=== PATIENT | female | born 1990 | race Caucasian/White ===

== ENCOUNTER 2016-10-07 07:16 | Emergency (ER) | payer BC ==
[~2016-10-07] VITALS: Ht 175.3 cm; Wt 72.2 kg
[2016-10-07] MEDS ORDERED: MORPHINE 4 MG/ML 1ML SYRINGE IV ONE (07:45)
[2016-10-07] MEDS ORDERED: NS 1,000 ML IV SCH (07:45)
[2016-10-07] MEDS ORDERED: ONDANSETRON 4MG/2ML VIAL (J2405) IV ONE (07:45)
[2016-10-07 08:06] LABS: BASO % 0.2 % (0.0-1.0); EOS # 0.1 K/mm3 (0.0-0.50); EOS % 1.9 % (0.0-3.0); LARGE UNSTAINED CELL # 0.1 K/mm3 (0.0-0.4); LARGE UNSTAINED CELL % 1.9 % (0.0-4.0); LYMPH # 0.9 K/mm3 (1.5-6.5); LYMPH % 21.5 % (24.0-44.0); MEAN CORPUSCULAR HEMOGLOBIN 31.6 pg (27.0-33.0); MEAN CORPUSCULAR VOLUME 92.9 fl (80.0-96.0); MONO # 0.3 K/mm3 (0.0-0.8); MONO % 6.9 % (0.0-5.0); NEUTROPHILS # 2.6 K/mm3 (1.8-7.7); NEUTROPHILS % 67.5 % (36.0-66.0); PLATELET COUNT, AUTOMATED 283 k/mm3 (150-450); RED CELL DISTRIBUTION WIDTH 12.1 % (11.5-14.5); WHITE BLOOD COUNT 3.9 K/mm3 (4.0-10.0)
[2016-10-07 08:48] LABS: CONTROL LINE HCG INT CTR LINE PRESENT
[2016-10-07] MEDS ORDERED: GASTROGRAFIN SOLUTION 30ML PO ONE (09:15)
[2016-10-07 09:20] LABS: ALKALINE PHOSPHATASE 63 U/L (45-117); ALT/SGPT 28 U/L (12-78); ANION GAP 7 MEQ/L (8-16); AST/SGOT 31 U/L (15-37); BILIRUBIN,DIRECT 0.1 MG/DL (0.0-0.2); BILIRUBIN,TOTAL 0.5 MG/DL (0.2-1.0); BLOOD UREA NITROGEN 11 MG/DL (7-18); CALCIUM LEVEL 8.9 MG/DL (8.5-10.1); CARBON DIOXIDE LEVEL 23 MEQ/L (21-32); CHLORIDE LEVEL 108 MEQ/L (98-107); CREATININE FOR GFR 0.66 MG/DL (0.55-1.02); GLOMERULAR FILTRATION RATE > 60.0 (>60); GLUCOSE, FASTING 94 MG/DL (70-105); POTASSIUM SERUM 3.7 MEQ/L (3.5-5.1); SODIUM LEVEL 138 MEQ/L (136-145); TOTAL PROTEIN 6.9 GM/DL (6.4-8.2)
[2016-10-07 09:21] LABS: ALBUMIN 3.6 GM/DL (3.2-5.2); ALBUMIN/GLOBULIN RATIO 1.09 (1.00-1.93)
[2016-10-07] MEDS ORDERED: ISOVUE-370 76% 100ML VIAL (Q9967) As Ordered ONE (09:24)
[2016-10-07] MEDS ORDERED: GASTROGRAFIN SOLUTION 30ML (Q9963) PO ONE (09:45)
--- NOTE | 2016-10-07 11:02 | REP ---
CT STUDY ABDOMEN AND PELVIS WITH IV AND ORAL CONTRAST: HISTORY: Right upper quadrant and right lower quadrant pain. CT CONTRAST DOSE: 100 mL of Isovue 370 is administered intravenously. COMPARISON CT STUDY: December 27, 2013. CT FINDINGS: Preliminary digital twister doffer radiograph is unremarkable. The lung bases remain clear. There is no evidence of pleural effusion or upper abdominal ascites. The liver and the spleen are normal in size and homogeneous. No gallbladder abnormality is seen. Pancreas is unremarkable. No adrenal lesion is seen on either side. The kidneys enhance symmetrically and appear morphologically intact. No retroperitoneal mass or adenopathy is seen. Normal caliber aorta is noted. There is some subcutaneous fibrosis in the linear fashion noted in the right inguinal soft tissue suggesting previous hernia repair. No uterine or ovarian abnormality is seen. The appendix is not definitely identified but there is no CT evidence to suggest appendicitis. Small and large intestinal bowel loops are unremarkable. No abdominal wall defect is seen. No evidence of free air or abnormal fluid collection is seen. No bony destructive lesions. IMPRESSION: Evidence of linear scarring in the right inguinal soft tissues question herniorrhaphy. No acute abdominal or pelvic abnormality. Signed by Baldomero Catherine MD 10/07/2016 03:44 P
[2016-10-07] MEDS ORDERED: ZOFR4TAB3 PO (12:35)
[2016-10-07 13:30] VITALS: BP 122/79
== END 2016-10-07 13:32 | disposition home or self-care (01) ==
LOC: M ED 07:16
DX: R11.10 Vomiting, unspecified (principal); R19.7 Diarrhea, unspecified; G43.909 Migraine, unspecified, not intractable, without status migrainosus; J30.2 Other seasonal allergic rhinitis; J30.81 Allergic rhinitis due to animal (cat) (dog) hair and dander; Z91.018 Allergy to other foods
CPT/HCPCS: 36415; 74177; 80048; 80076; 81001; 83690; 84703; 85025; 87086; 96361; 96375; 99284; J2405; Q9963; Q9967

== ENCOUNTER → 2016-12-26 | Outpatient (REF) | payer BC ==
[~2016-12-26] MED LIST: ZOFR4TAB3 PO
== END ==
LOC: M SFHCWAGY 09:21
PROVIDERS: ATTEND Nurse Practitioner Women's Health
DX: Z12.4 Encounter for screening for malignant neoplasm of cervix (principal)
CPT/HCPCS: 87491; 87591; G0123

== ENCOUNTER → 2018-07-27 | Outpatient (REF) ==
[~2018-07-27] MED LIST changes: +ZOFR4TAB14 PO; -ZOFR4TAB3 PO
== END ==
LOC: M LAB 11:34
PROVIDERS: ATTEND Nurse Practitioner Adult Health
DX: Z02.89 Encounter for other administrative examinations (principal)

== ENCOUNTER → 2018-08-19 | Outpatient (REF) | LOC: M LAB 16:35 | PROVIDERS: ATTEND Nurse Practitioner Adult Health | DX: Z02.89 Encounter for other administrative examinations (principal) ==

== ENCOUNTER → 2018-08-27 | Outpatient (REF) | payer BC ==
[2018-08-27 16:54] LABS: BASO % 0.5 % (0.0-1.0); EOS # 0.1 10^3/uL (0.0-0.50); EOS % 1.7 % (0.0-3.0); HEMATOCRIT 41.5 % (36.0-47.0); HEMOGLOBIN 13.9 g/dl (12.0-15.5); LYMPH # 2.1 10^3/uL (1.5-6.5); LYMPH % 27.8 % (24.0-44.0); MEAN CORPUSCULAR HGB CONC 33.5 g/dl (32.0-36.5); MEAN CORPUSCULAR VOLUME 89.6 fl (80.0-96.0); MONO # 0.5 10^3/uL (0.0-0.8); MONO % 6.3 % (0.0-5.0); NEUTROPHILS # 4.9 10^3/uL (1.8-7.7); NEUTROPHILS % 63.4 % (36.0-66.0); PLATELET COUNT, AUTOMATED 356 10^3/uL (150-450); RED BLOOD COUNT 4.63 10^6/uL (4.00-5.40); WHITE BLOOD COUNT 7.7 10^3/uL (4.0-10.0)
== END ==
LOC: M SFHCWAGY 14:14
PROVIDERS: ATTEND Nurse Practitioner Women's Health
DX: N92.1 Excessive and frequent menstruation with irregular cycle (principal)

== ENCOUNTER → 2018-09-09 | Outpatient (CLI) | payer BC ==
--- NOTE | 2018-09-09 14:08 | REP ---
PELVIC SONOGRAPHY: HISTORY: Abnormal menstrual bleeding. FINDINGS: Transabdominal and transvaginal scanning are performed. Uterine dimensions are 9.9 x 3.5 x 6.0 cm. Endometrial echo 0.7 cm thick. A small amount of Endometrial fluid is seen in the lower uterine segment region. No focal uterine mass is seen. Nabothian cysts are noted in the cervix. Normal ovaries seen bilaterally. Right ovary measures 3.9 x 2.3 x 2.3 cm. Left ovary dimensions are 3.0 x 1.9 x 3 point a centimeters. IMPRESSION: No significant abnormality.
== END ==
LOC: M WHC 12:50
PROVIDERS: ATTEND Nurse Practitioner Women's Health
DX: Z31.69 Encounter for other general counseling and advice on procreation (principal); N92.1 Excessive and frequent menstruation with irregular cycle

== ENCOUNTER → 2018-10-26 | Outpatient (CLI) | payer BC ==
[2018-10-26 21:06] LABS: FREE T4 0.9 NG/DL (0.76-1.46); THYROID STIMULATING HORMONE 1.37 uIU/ML (0.358-3.740)
[2018-10-26 21:11] LABS: FOLLICLE STIMULATING HORMONE 5.9 mIU/mL; LUTEINIZING HORMONE 9.6 mIU/mL; PROGESTERONE 0.21 NG/ML; PROLACTIN 6.8 NG/ML
== END ==
LOC: M LRY 17:13
PROVIDERS: ATTEND Specialist
DX: N93.8 Other specified abnormal uterine and vaginal bleeding (principal)

== ENCOUNTER → 2018-11-11 | Outpatient (CLI) | payer BC | LOC: M LRY 12:14 | PROVIDERS: ATTEND Specialist | DX: N91.2 Amenorrhea, unspecified (principal) ==

== ENCOUNTER 2019-01-11 14:26 | Emergency (ER) | payer BC ==
[~2019-01-11] VITALS: Ht 175.3 cm; Wt 86.4 kg
[2019-01-11] MEDS ORDERED: LETR2.5T2 PO (14:37)
[2019-01-11 15:15] LABS: BASO % 0.4 % (0.0-1.0); EOS # 0.1 10^3/uL (0.0-0.5); EOS % 1.4 % (0.0-3.0); HEMATOCRIT 41.1 % (36.0-47.0); LYMPH # 1.9 10^3/uL (1.5-5.0); LYMPH % 22.7 % (24.0-44.0); MEAN CORPUSCULAR HEMOGLOBIN 31.3 pg (27.0-33.0); MEAN CORPUSCULAR HGB CONC 34.1 g/dl (32.0-36.5); MEAN CORPUSCULAR VOLUME 91.9 fl (80.0-96.0); MONO # 0.4 10^3/uL (0.0-0.8); NEUTROPHILS % 70.3 % (36.0-66.0); PLATELET COUNT, AUTOMATED 325 10^3/uL (150-450); RED BLOOD COUNT 4.47 10^6/uL (4.00-5.40); WHITE BLOOD COUNT 8.6 10^3/uL (4.0-10.0)
[2019-01-11 15:43] LABS: BLOOD UREA NITROGEN 15 MG/DL (7-18); CALCIUM LEVEL 9.4 MG/DL (8.5-10.1); CARBON DIOXIDE LEVEL 28 MEQ/L (21-32); CHLORIDE LEVEL 106 MEQ/L (98-107); CREATININE FOR GFR 0.93 MG/DL (0.55-1.30); GLOMERULAR FILTRATION RATE > 60.0 (>60); GLUCOSE, FASTING 92 MG/DL (70-100); POTASSIUM SERUM 4.4 MEQ/L (3.5-5.1); SODIUM LEVEL 138 MEQ/L (136-145)
[2019-01-11 17:18] LABS: HCG, SERUM QUALITATIVE NEGATIVE (NEGATIVE)
--- NOTE | 2019-01-11 18:20 | REPVR ---
PROCEDURE INFORMATION: Exam: US Pelvis Complete, Transabdominal and US Pelvis, Transvaginal Exam date and time: 01/11/2019 5:48 PM Clinical history: 28 years old, female; Pelvic pain; Additional info: Vaginal bleeding-heavier than normal, pelvic cramping TECHNIQUE: Imaging protocol: Real-time transabdominal and transvaginal pelvic ultrasound (complete) with image documentation. Transvaginal imaging was used for better evaluation of the endometrium and adnexa. COMPARISON: PELVIS NON-OB COMPLETE US 09/09/2018 12:09 PM FINDINGS: Uterus/cervix: The uterus measures 10.5 cm x 3.3 cm x 6.7 cm. The uterus has a normal appearance. No uterine mass. The uterus is anteverted. The endometrial stripe measures 3.2 mm. Right adnexa: The right ovary has a normal appearance, containing a few tiny follicles. The right ovary measures 3.4 cm x 1.8 cm x 1.5 cm. Left adnexa: The left ovary has a normal appearance, containing a few tiny follicles. The left ovary measures 1.3 cm x 1.6 cm x 3.4 cm. Free fluid: None. Bladder: Limited images of the urinary bladder are unremarkable. IMPRESSION: Normal ultrasound of the pelvis. Electronically signed by: Sincere Martinez On 01/11/2019 18:20:25 PM
[2019-01-11 19:31] VITALS: BP 126/75
== END 2019-01-11 19:43 | disposition home or self-care (01) ==
LOC: M ED 14:26
DX: N94.6 Dysmenorrhea, unspecified (principal); J30.2 Other seasonal allergic rhinitis; Z79.899 Other long term (current) drug therapy

== ENCOUNTER → 2019-08-30 | Outpatient (REF) | payer BC ==
[~2019-08-30] MED LIST changes: +LETR2.5T2 PO
[2019-08-30 11:30] LABS: BASO % 0.4 % (0.0-1.0); EOS % 0.6 % (0.0-3.0); HEMATOCRIT 41.8 % (36.0-47.0); HEMOGLOBIN 13.9 g/dl (12.0-15.5); LYMPH # 1.4 10^3/uL (1.5-5.0); MEAN CORPUSCULAR HEMOGLOBIN 30.4 pg (27.0-33.0); MEAN CORPUSCULAR HGB CONC 33.3 g/dl (32.0-36.5); MEAN CORPUSCULAR VOLUME 91.5 fl (80.0-96.0); MONO # 0.3 10^3/uL (0.0-0.8); MONO % 5.5 % (0.0-5.0); NEUTROPHILS % 63.3 % (36.0-66.0); PLATELET COUNT, AUTOMATED 302 10^3/uL (150-450); RED BLOOD COUNT 4.57 10^6/uL (4.00-5.40); WHITE BLOOD COUNT 4.7 10^3/uL (4.0-10.0)
[2019-08-30 12:59] LABS: ALBUMIN 4.2 GM/DL (3.2-5.2); ALT/SGPT 31 U/L (12-78); BILIRUBIN,TOTAL 0.5 MG/DL (0.2-1.0); BLOOD UREA NITROGEN 10 MG/DL (7-18); CALCIUM LEVEL 9.4 MG/DL (8.5-10.1); CARBON DIOXIDE LEVEL 29 MEQ/L (21-32); CHLORIDE LEVEL 105 MEQ/L (98-107); CHOLESTEROL LEVEL 156 MG/DL (<200); CHOLESTEROL RISK RATIO 3.058 (<5); CREATININE FOR GFR 0.73 MG/DL (0.55-1.30); FREE T4 1.08 NG/DL (0.76-1.46); GLOMERULAR FILTRATION RATE > 60.0 (>60); GLUCOSE, FASTING 88 MG/DL (70-100); HDL CHOLESTEROL 51 MG/DL (>40); LDL CHOLESTEROL 81 MG/DL (<100); NON-HDL-C 105 MG/DL; POTASSIUM SERUM 4.7 MEQ/L (3.5-5.1); SODIUM LEVEL 139 MEQ/L (136-145); TOTAL PROTEIN 7.7 GM/DL (6.4-8.2); TRIGLYCERIDES LEVEL 119 MG/DL (<150)
[2019-08-30 13:43] LABS: HEMOGLOBIN A1c 5.2 %
== END ==
LOC: M SFHCPLAZ 09:23
PROVIDERS: ATTEND Physician Assistant Medical
DX: N92.0 Excessive and frequent menstruation with regular cycle (principal); Z13.220 Encounter for screening for lipoid disorders; E66.3 Overweight

== ENCOUNTER → 2020-02-17 | Outpatient (CLI) | payer BC ==
--- NOTE | 2020-02-17 20:30 | REPVR ---
PROCEDURE INFORMATION: Exam: MR Head Without Contrast Exam date and time: 02/17/2020 5:23 PM Age: 29 years old Clinical indication: Other: Post-traumatic headache, unspecified, not intractable TECHNIQUE: Imaging protocol: MR of the head without contrast. COMPARISON: No relevant prior studies available. FINDINGS: Brain: There is no restricted diffusion to suggest acute infarction. There is no acute intracranial hemorrhage, prior microhemorrhages or mass although there may be an arachnoid cyst at the left brain vertex. There is 1 white matter hyperintensity on the FLAIR sequence adjacent to the atrium of the left lateral ventricle. Cerebral ventricles: Normal. No ventriculomegaly. Bones/joints: Unremarkable. Paranasal sinuses: There is a large mucous retention cysts in the left maxillary antrum and mucoperiosteal thickening in the right maxillary antrum.The remainder of the paranasal sinuses appear clear. Mastoid air cells: Normal as visualized. No mastoid effusion. Orbits: Unremarkable. Soft tissues: Unremarkable. IMPRESSION: No acute intracranial findings. Electronically signed by: Amarilys Castañeda On 02/17/2020 20:30:34 PM
--- NOTE | 2020-02-17 20:32 | REPVR ---
PROCEDURE INFORMATION: Exam: MR Angiography Neck Without Contrast Exam date and time: 02/17/2020 5:23 PM Age: 29 years old Clinical indication: Other: Post-traumatic headache, unspecified, not intractable TECHNIQUE: Imaging protocol: Magnetic resonance angiography of the neck without contrast. 3D rendering (Not supervised by radiologist): MIP and/or 3D reconstructed images were created by the technologist. COMPARISON: No relevant prior studies available. FINDINGS: Right common carotid artery: No stenosis. No dissection or occlusion. Right internal carotid artery: No stenosis of the extracranial segment. No dissection or occlusion. Right external carotid artery: No stenosis. No dissection or occlusion of the origin. Right vertebral artery: No stenosis. No dissection or occlusion. Left common carotid artery: No stenosis. No dissection or occlusion. Left internal carotid artery: No stenosis of the extracranial segment. No dissection or occlusion. Left external carotid artery: No stenosis. No dissection or occlusion of the origin. Left vertebral artery: No stenosis. No dissection or occlusion. IMPRESSION: No stenosis or occlusion. REFERENCES: NASCET CRITERIA. The degree of internal carotid artery stenosis is based on NASCET criteria. Normal is no stenosis. Mild is less than 50% stenosis. Moderate is 50-69% stenosis. Severe is 70% to 99% stenosis. Total occlusion is no detectable patent lumen. Electronically signed by: Amarilys Castañeda On 02/17/2020 20:32:36 PM
--- NOTE | 2020-02-17 20:35 | REPVR ---
PROCEDURE INFORMATION: Exam: MR Angiogram Head Without Contrast, Arteries Exam date and time: 02/17/2020 5:23 PM Age: 29 years old Clinical indication: Other: Post-traumatic headache, unspecified, not intractable; Additional info: Post traumatic h/a TECHNIQUE: Imaging protocol: MR angiogram head without contrast. Exam focused on the arteries. 3D rendering (Not supervised by radiologist): MIP and/or 3D reconstructed images were created by the technologist. COMPARISON: No relevant prior studies available. FINDINGS: ANTERIOR CIRCULATION: Right internal carotid artery: Intracranial segment is patent with no significant stenosis. No aneurysm. Right middle cerebral artery: No occlusion or significant stenosis. No aneurysm. Right anterior cerebral artery: No occlusion or significant stenosis. No aneurysm. Left internal carotid artery: Intracranial segment is patent with no significant stenosis. No aneurysm. Left middle cerebral artery: No occlusion or significant stenosis. No aneurysm. Left anterior cerebral artery: No occlusion or significant stenosis. No aneurysm. POSTERIOR CIRCULATION: Right vertebral artery: No occlusion or significant stenosis. No aneurysm. Left vertebral artery: No occlusion or significant stenosis. No aneurysm. Basilar artery: No occlusion or significant stenosis. No aneurysm. Right posterior cerebral artery: No occlusion or significant stenosis. No aneurysm. Left posterior cerebral artery: No occlusion or significant stenosis. No aneurysm. IMPRESSION: No stenosis or occlusion. Electronically signed by: Amarilys Castañeda On 02/17/2020 20:35:07 PM
== END ==
LOC: M RAD 16:19
PROVIDERS: ATTEND Physician Assistant Medical
DX: G44.309 Post-traumatic headache, unspecified, not intractable (principal)

== ENCOUNTER → 2020-02-24 | Outpatient (CLI) | payer BC ==
[2020-02-24 10:42] LABS: BASO % 0.5 % (0.0-1.0); EOS # 0.1 10^3/uL (0.0-0.5); HEMATOCRIT 41.3 % (36.0-47.0); HEMOGLOBIN 13.5 g/dl (12.0-15.5); LYMPH # 1.9 10^3/uL (1.5-5.0); LYMPH % 34.8 % (24.0-44.0); MEAN CORPUSCULAR HEMOGLOBIN 30.2 pg (27.0-33.0); MEAN CORPUSCULAR HGB CONC 32.7 g/dl (32.0-36.5); MEAN CORPUSCULAR VOLUME 92.4 fl (80.0-96.0); MONO # 0.3 10^3/uL (0.0-0.8); MONO % 5.3 % (0.0-5.0); NEUTROPHILS # 3.2 10^3/uL (1.5-8.5); NEUTROPHILS % 57.2 % (36.0-66.0); PLATELET COUNT, AUTOMATED 316 10^3/uL (150-450); RED BLOOD COUNT 4.47 10^6/uL (4.00-5.40); WHITE BLOOD COUNT 5.5 10^3/uL (4.0-10.0)
[2020-02-24 11:01] LABS: HEMOGLOBIN A1c 5.2 %
[2020-02-24 11:13] LABS: ALBUMIN 3.9 GM/DL (3.2-5.2); ALT/SGPT 36 U/L (12-78); BILIRUBIN,TOTAL 0.4 MG/DL (0.2-1.0); BLOOD UREA NITROGEN 12 MG/DL (7-18); CALCIUM LEVEL 9.3 MG/DL (8.5-10.1); CARBON DIOXIDE LEVEL 29 MEQ/L (21-32); CHLORIDE LEVEL 106 MEQ/L (98-107); CREATININE FOR GFR 0.68 MG/DL (0.55-1.30); GLOMERULAR FILTRATION RATE > 60.0 (>60); GLUCOSE, FASTING 84 MG/DL (70-100); HCG, SERUM QUANTITATIVE < 1.0 MIU/ML; POTASSIUM SERUM 4.3 MEQ/L (3.5-5.1); SODIUM LEVEL 140 MEQ/L (136-145); TOTAL PROTEIN 7.5 GM/DL (6.4-8.2)
[2020-02-24 11:15] LABS: TOTAL 25(OH) VITAMIN D 24.7 NG/ML (30.0-100.0)
[2020-02-24 11:16] LABS: TESTOSTERONE 19 NG/DL (14-76)
[2020-02-24 11:17] LABS: LUTEINIZING HORMONE 4.8 mIU/mL; PROGESTERONE 0.42 NG/ML; PROLACTIN 6.7 NG/ML
[2020-02-24 11:18] LABS: ESTRADIOL 24.7 PG/ML
[2020-02-24 11:19] LABS: FOLLICLE STIMULATING HORMONE 6.8 mIU/mL
[2020-02-24 11:29] LABS: HEPATITIS B SURFACE ANTIGEN NEGATIVE (NEGATIVE)
[2020-02-24 11:55] LABS: HEPATITIS C VIRUS ABY INDEX < 0.0 INDEX (<0.8)
[2020-02-24 11:58] LABS: HIV 1&2 SCREEN CENTAUR NEGATIVE (NEGATIVE)
== END ==
LOC: M LAB 09:33
PROVIDERS: ATTEND Obstetrics & Gynecology Reproductive Endocrinology
DX: Z31.41 Encounter for fertility testing (principal)

== ENCOUNTER → 2020-05-11 | Outpatient (CLI) | payer BC ==
[2020-05-11 11:00] LABS: ESTRADIOL 19.9 PG/ML; PROGESTERONE 19.86 NG/ML
== END ==
LOC: M LAB 09:54
PROVIDERS: ATTEND Obstetrics & Gynecology Reproductive Endocrinology
DX: E28.9 Ovarian dysfunction, unspecified (principal)

== ENCOUNTER → 2020-05-18 | Outpatient (CLI) | payer BC ==
[2020-05-18 08:29] LABS: PROGESTERONE 11.59 NG/ML
== END ==
LOC: M LAB 06:50
PROVIDERS: ATTEND Obstetrics & Gynecology Reproductive Endocrinology
DX: E28.9 Ovarian dysfunction, unspecified (principal)

== ENCOUNTER → 2020-05-21 | Outpatient (CLI) | payer BC ==
[2020-05-21 08:31] LABS: THYROID STIMULATING HORMONE 2.44 uIU/ML (0.358-3.740)
[2020-05-21 11:04] LABS: PROGESTERONE 18.12 NG/ML
[2020-05-21 11:05] LABS: ESTRADIOL 180.5 PG/ML
== END ==
LOC: M LAB 07:08
PROVIDERS: ATTEND Obstetrics & Gynecology Reproductive Endocrinology
DX: Z32.01 Encounter for pregnancy test, result positive (principal)

== ENCOUNTER → 2020-05-23 | Outpatient (CLI) | payer BC ==
[2020-05-23 08:41] LABS: ESTRADIOL 270.8 PG/ML; PROGESTERONE 18.66 NG/ML
== END ==
LOC: M LAB 07:10
PROVIDERS: ATTEND Obstetrics & Gynecology Reproductive Endocrinology
DX: O09.00 Supervision of pregnancy with history of infertility, unspecified trimester (principal); Z3A.00 Weeks of gestation of pregnancy not specified

== ENCOUNTER → 2020-05-25 | Outpatient (CLI) | payer BC ==
[2020-05-25 08:10] LABS: ESTRADIOL 330.7 PG/ML; PROGESTERONE 18.56 NG/ML
== END ==
LOC: M LAB 06:51
PROVIDERS: ATTEND Obstetrics & Gynecology Reproductive Endocrinology
DX: O09.00 Supervision of pregnancy with history of infertility, unspecified trimester (principal)

== ENCOUNTER → 2020-05-28 | Outpatient (CLI) | payer BC ==
[2020-05-28 10:57] LABS: PROGESTERONE 29.97 NG/ML
[2020-05-28 10:58] LABS: ESTRADIOL 330.7 PG/ML
== END ==
LOC: M LAB 06:42
PROVIDERS: ATTEND Obstetrics & Gynecology Reproductive Endocrinology
DX: O09.00 Supervision of pregnancy with history of infertility, unspecified trimester (principal)

== ENCOUNTER → 2020-06-20 | Outpatient (CLI) | payer BC | LOC: M LAB 06:58 | PROVIDERS: ATTEND Obstetrics & Gynecology Reproductive Endocrinology | DX: O02.1 Missed abortion (principal) ==

== ENCOUNTER → 2020-08-14 | Outpatient (CLI) | payer BC ==
[2020-08-14 09:08] LABS: ESTRADIOL 61.6 PG/ML; PROGESTERONE 11.55 NG/ML
== END ==
LOC: M LAB 06:42
PROVIDERS: ATTEND Obstetrics & Gynecology Reproductive Endocrinology
DX: E28.9 Ovarian dysfunction, unspecified (principal)

== ENCOUNTER → 2020-08-21 | Outpatient (CLI) | payer BC ==
[2020-08-21 07:55] LABS: HCG, SERUM QUANTITATIVE < 1.0 MIU/ML
== END ==
LOC: M LAB 06:51
PROVIDERS: ATTEND Obstetrics & Gynecology Reproductive Endocrinology
DX: Z32.00 Encounter for pregnancy test, result unknown (principal)

== ENCOUNTER → 2020-09-12 | Outpatient (CLI) | payer BC ==
[2020-09-12 08:44] LABS: ESTRADIOL 61.4 PG/ML; PROGESTERONE 20.38 NG/ML
== END ==
LOC: M LAB 07:28
PROVIDERS: ATTEND Obstetrics & Gynecology Reproductive Endocrinology
DX: E28.9 Ovarian dysfunction, unspecified (principal)

== ENCOUNTER → 2020-09-19 | Outpatient (CLI) | payer BC ==
[2020-09-19 08:32] LABS: HCG, SERUM QUANTITATIVE < 1.0 MIU/ML
[2020-09-19 11:28] LABS: PROGESTERONE 7.17 NG/ML
== END ==
LOC: M LAB 07:14
PROVIDERS: ATTEND Obstetrics & Gynecology Reproductive Endocrinology
DX: Z32.00 Encounter for pregnancy test, result unknown (principal)

== ENCOUNTER → 2020-10-09 | Outpatient (CLI) | payer BC ==
[2020-10-09 10:39] LABS: ESTRADIOL 46.9 PG/ML; PROGESTERONE 35.42 NG/ML
== END ==
LOC: M LAB 06:26
PROVIDERS: ATTEND Obstetrics & Gynecology Reproductive Endocrinology
DX: E28.9 Ovarian dysfunction, unspecified (principal)

== ENCOUNTER → 2020-10-16 | Outpatient (CLI) | payer BC ==
[2020-10-16 07:17] LABS: HCG, SERUM QUANTITATIVE < 1.0 MIU/ML
[2020-10-16 09:03] LABS: PROGESTERONE 14.74 NG/ML
== END ==
LOC: M LAB 06:27
PROVIDERS: ATTEND Obstetrics & Gynecology Reproductive Endocrinology
DX: E28.9 Ovarian dysfunction, unspecified (principal)

== ENCOUNTER → 2020-11-06 | Outpatient (CLI) | payer BC ==
[2020-11-06 08:17] LABS: ESTRADIOL 29.3 PG/ML; PROGESTERONE 31.04 NG/ML
== END ==
LOC: M LAB 06:48
PROVIDERS: ATTEND Obstetrics & Gynecology Reproductive Endocrinology
DX: Z31.49 Encounter for other procreative investigation and testing (principal)

== ENCOUNTER → 2020-11-13 | Outpatient (CLI) | payer BC ==
[2020-11-13 07:51] LABS: HCG, SERUM QUANTITATIVE < 1.0 MIU/ML
[2020-11-13 09:19] LABS: PROGESTERONE 7.22 NG/ML
== END ==
LOC: M LAB 06:52
PROVIDERS: ATTEND Obstetrics & Gynecology Reproductive Endocrinology
DX: Z32.00 Encounter for pregnancy test, result unknown (principal)

== ENCOUNTER → 2020-12-07 | Outpatient (CLI) | payer BC ==
[2020-12-07 09:09] LABS: ESTRADIOL 630.4 PG/ML; PROGESTERONE 36.8 NG/ML
== END ==
LOC: M LAB 06:50
PROVIDERS: ATTEND Obstetrics & Gynecology Reproductive Endocrinology
DX: Z31.49 Encounter for other procreative investigation and testing (principal)

== ENCOUNTER → 2020-12-14 | Outpatient (CLI) | payer BC | LOC: M LAB 06:55 | PROVIDERS: ATTEND Obstetrics & Gynecology Reproductive Endocrinology | DX: Z32.00 Encounter for pregnancy test, result unknown (principal) ==

== ENCOUNTER → 2020-12-17 | Outpatient (CLI) | payer BC ==
[2020-12-17 07:43] LABS: THYROID STIMULATING HORMONE 1.89 uIU/ML (0.358-3.740)
[2020-12-17 11:32] LABS: ESTRADIOL 1381.7 PG/ML
[2020-12-17 11:56] LABS: PROGESTERONE 68.1 NG/ML
== END ==
LOC: M LAB 06:38
PROVIDERS: ATTEND Obstetrics & Gynecology Reproductive Endocrinology
DX: Z32.01 Encounter for pregnancy test, result positive (principal)

== ENCOUNTER → 2020-12-20 | Outpatient (CLI) | payer BC | LOC: M LAB 07:14 | PROVIDERS: ATTEND Obstetrics & Gynecology Reproductive Endocrinology | DX: O09.00 Supervision of pregnancy with history of infertility, unspecified trimester (principal) ==

== ENCOUNTER → 2021-02-08 | Outpatient (CLI) | payer BC ==
[2021-02-08 13:32] LABS: BASO % 0.4 % (0.0-1.0); EOS # 0.1 10^3/uL (0.0-0.5); EOS % 0.6 % (0.0-3.0); HEMATOCRIT 38.5 % (36.0-47.0); HEMOGLOBIN 12.7 g/dl (12.0-15.5); LYMPH # 1.5 10^3/uL (1.5-5.0); LYMPH % 19.6 % (24.0-44.0); MEAN CORPUSCULAR HEMOGLOBIN 30.4 pg (27.0-33.0); MEAN CORPUSCULAR VOLUME 92.1 fl (80.0-96.0); MONO # 0.4 10^3/uL (0.0-0.8); MONO % 5.6 % (2.0-8.0); NEUTROPHILS # 5.7 10^3/uL (1.5-8.5); NEUTROPHILS % 73.4 % (36.0-66.0); PLATELET COUNT, AUTOMATED 338 10^3/uL (150-450); RED BLOOD COUNT 4.18 10^6/uL (4.00-5.40); WHITE BLOOD COUNT 7.7 10^3/uL (4.0-10.0)
[2021-02-08 14:51] LABS: HEPATITIS C VIRUS ABY INDEX 0.1 INDEX (<0.8); HIV 1&2 SCREEN CENTAUR NEGATIVE (NEGATIVE)
[2021-02-08 15:54] LABS: GC DNA AMPLIFICATION NEGATIVE (NEGATIVE)
== END ==
LOC: M PLALAB 10:51
PROVIDERS: ATTEND Advanced Practice Midwife
DX: O09.811 Supervision of pregnancy resulting from assisted reproductive technology, first trimester (principal)

== ENCOUNTER → 2021-04-24 | Outpatient (CLI) | payer BC | LOC: M WHC 07:01 | PROVIDERS: ATTEND Obstetrics & Gynecology | DX: Z34.92 Encounter for supervision of normal pregnancy, unspecified, second trimester (principal) ==

== ENCOUNTER → 2021-05-08 | Outpatient (CLI) | payer BC ==
[2021-05-08 18:34] LABS: RED BLOOD COUNT 3.51 10^6/uL (4.00-5.40); WHITE BLOOD COUNT 9.1 10^3/uL (4.0-10.0)
[2021-05-08 18:35] LABS: HEMATOCRIT 32.1 % (36.0-47.0); HEMOGLOBIN 10.8 g/dl (12.0-15.5); MEAN CORPUSCULAR HEMOGLOBIN 30.8 pg (27.0-33.0); MEAN CORPUSCULAR HGB CONC 33.6 g/dl (32.0-36.5); MEAN CORPUSCULAR VOLUME 91.5 fl (80.0-96.0); PLATELET COUNT, AUTOMATED 295 10^3/uL (150-450)
[2021-05-08 19:28] LABS: GC DNA AMPLIFICATION NEGATIVE (NEGATIVE)
== END ==
LOC: M PLALAB 14:09
PROVIDERS: ATTEND Obstetrics & Gynecology
DX: Z34.82 Encounter for supervision of other normal pregnancy, second trimester (principal)

== ENCOUNTER 2021-07-12 13:07 | Outpatient (CLI) | payer BC ==
[~2021-07-12] VITALS: Ht 175.3 cm; Wt 87.8 kg
[2021-07-12 13:24] VITALS: BP 102/60
[2021-07-12] MEDS ORDERED: ACET-907 PO (13:37)
[2021-07-12] MEDS ORDERED: PRIL20TA2 PO (13:37)
[2021-07-12] MEDS ORDERED: BICITRA 30ML SOLN UDC PO ONE (14:00)
== END 2021-07-12 14:30 | disposition home or self-care (01) ==
LOC: M LDO 13:07
PROVIDERS: ATTEND Obstetrics & Gynecology
DX: O26.893 Other specified pregnancy related conditions, third trimester (principal); R10.13 Epigastric pain; Z3A.34 34 weeks gestation of pregnancy; O99.613 Diseases of the digestive system complicating pregnancy, third trimester; K21.9 Gastro-esophageal reflux disease without esophagitis
CPT/HCPCS: 59025; G0463

== ENCOUNTER 2021-07-15 10:53 | Emergency (ER) | payer BC ==
[~2021-07-15] VITALS: Ht 175.3 cm; Wt 86.2 kg
[~2021-07-15 10:53] MED LIST changes: +ACET-907 PO; +PRIL20TA2 PO
[2021-07-15 12:27] LABS: BASO % 0.5 % (0.0-1.0); EOS # 0.1 10^3/uL (0.0-0.5); HEMATOCRIT 33.4 % (36.0-47.0); HEMOGLOBIN 10.9 g/dl (12.0-15.5); LYMPH # 0.7 10^3/uL (1.5-5.0); LYMPH % 12.8 % (24.0-44.0); MEAN CORPUSCULAR HEMOGLOBIN 29.3 pg (27.0-33.0); MEAN CORPUSCULAR HGB CONC 32.6 g/dl (32.0-36.5); MEAN CORPUSCULAR VOLUME 89.8 fl (80.0-96.0); MONO # 0.5 10^3/uL (0.0-0.8); MONO % 9.2 % (2.0-8.0); NEUTROPHILS # 4.3 10^3/uL (1.5-8.5); NEUTROPHILS % 75.5 % (36.0-66.0); PLATELET COUNT, AUTOMATED 251 10^3/uL (150-450); RED BLOOD COUNT 3.72 10^6/uL (4.00-5.40); WHITE BLOOD COUNT 5.8 10^3/uL (4.0-10.0)
[2021-07-15 12:52] LABS: BLOOD UREA NITROGEN 3 MG/DL (7-18); CARBON DIOXIDE LEVEL 24 MEQ/L (21-32); CHLORIDE LEVEL 106 MEQ/L (98-107); CREATININE FOR GFR 0.49 MG/DL (0.55-1.30); GLOMERULAR FILTRATION RATE > 60.0 (>60); GLUCOSE, FASTING 66 MG/DL (70-100); POTASSIUM SERUM 4.5 MEQ/L (3.5-5.1); SODIUM LEVEL 137 MEQ/L (136-145)
[2021-07-15] MEDS ORDERED: NS 1,000 ML IV ONE (13:50)
[2021-07-15] MEDS ORDERED: ISOVUE-370 76% 100ML VIAL As Ordered ONE (14:15)
[2021-07-15 17:39] VITALS: BP 120/69
== END 2021-07-15 17:39 | disposition home or self-care (01) ==
LOC: M ED 10:53
DX: O99.891 Other specified diseases and conditions complicating pregnancy (principal); R07.9 Chest pain, unspecified; O98.513 Other viral diseases complicating pregnancy, third trimester; J09.X2 Influenza due to identified novel influenza A virus with other respiratory manifestations
CPT/HCPCS: 71275; 80048; 81001; 85025; 87428; 93005; 93041; 96360; 96361; 99285; Q9967

== ENCOUNTER → 2021-07-30 | Outpatient (REF) | payer BC | LOC: M SFHCWAGY 16:53 | PROVIDERS: ATTEND Obstetrics & Gynecology | DX: Z34.03 Encounter for supervision of normal first pregnancy, third trimester (principal) ==

== ENCOUNTER → 2022-02-06 | Outpatient (CLI) | payer BC ==
[~2022-02-06] MED LIST changes: +PRENTAB9 PO
[2022-02-06 07:28] LABS: BASO % 0.6 % (0.0-1.0); EOS # 0.1 10^3/uL (0.0-0.5); EOS % 1.6 % (0.0-3.0); HEMATOCRIT 42.3 % (36.0-47.0); HEMOGLOBIN 13.8 g/dl (12.0-15.5); LYMPH # 1.8 10^3/uL (1.5-5.0); LYMPH % 36.7 % (24.0-44.0); MEAN CORPUSCULAR HEMOGLOBIN 29.9 pg (27.0-33.0); MEAN CORPUSCULAR HGB CONC 32.6 g/dl (32.0-36.5); MEAN CORPUSCULAR VOLUME 91.6 fl (80.0-96.0); MONO # 0.3 10^3/uL (0.0-0.8); MONO % 6.6 % (2.0-8.0); NEUTROPHILS # 2.7 10^3/uL (1.5-8.5); NEUTROPHILS % 54.3 % (36.0-66.0); PLATELET COUNT, AUTOMATED 312 10^3/uL (150-450); RED BLOOD COUNT 4.62 10^6/uL (4.00-5.40)
[2022-02-06 08:08] LABS: ALBUMIN 4.1 GM/DL (3.2-5.2); ALT/SGPT 20 U/L (12-78); BILIRUBIN,TOTAL 0.6 MG/DL (0.2-1.0); BLOOD UREA NITROGEN 15 MG/DL (7-18); CALCIUM LEVEL 9.6 MG/DL (8.5-10.1); CARBON DIOXIDE LEVEL 28 MEQ/L (21-32); CHLORIDE LEVEL 105 MEQ/L (98-107); CREATININE FOR GFR 0.79 MG/DL (0.55-1.30); FERRITIN 31 NG/ML (8-252); FREE T3 3.3 PG/ML (2.2-4.0); FREE T4 0.95 NG/DL (0.76-1.46); GLOMERULAR FILTRATION RATE > 60.0 (>60); GLUCOSE, FASTING 93 MG/DL (70-100); IRON (FE) 188 UG/DL (50-170); POTASSIUM SERUM 4.5 MEQ/L (3.5-5.1); SODIUM LEVEL 137 MEQ/L (136-145); TOTAL PROTEIN 7.4 GM/DL (6.4-8.2)
[2022-02-06 08:34] LABS: THYROID PEROXIDASE ANTIBODY 44.3 U/ML (<60.0)
[2022-02-06 08:35] LABS: THYROGLOBULIN ANTIBODY < 15.0 U/ML (<60.0)
[2022-02-06 10:24] LABS: HEMOGLOBIN A1c 4.9 %
== END ==
LOC: M LAB 06:57
PROVIDERS: ATTEND Physician Assistant Medical
DX: D64.9 Anemia, unspecified (principal)

== ENCOUNTER → 2022-04-23 | Outpatient (REF) | payer BC | LOC: M SFHCWAGY 16:41 | PROVIDERS: ATTEND Specialist | DX: Z01.419 Encounter for gynecological examination (general) (routine) without abnormal findings (principal) | CPT/HCPCS: 87624; G0123 ==

== ENCOUNTER → 2022-06-09 | Outpatient (REF) | payer BC | LOC: M WUC 09:34 | PROVIDERS: ATTEND Student in an Organized Health Care Education/Training Program | DX: R19.7 Diarrhea, unspecified (principal) ==

== ENCOUNTER → 2022-09-15 | Outpatient (CLI) | payer BC ==
[2022-09-15 10:39] LABS: BASO % 0.6 % (0.0-1.0); EOS # 0.2 10^3/uL (0.0-0.5); EOS % 4.3 % (0.0-3.0); HEMATOCRIT 38.9 % (36.0-47.0); HEMOGLOBIN 12.7 g/dl (12.0-15.5); LYMPH # 1.5 10^3/uL (1.5-5.0); LYMPH % 30.8 % (24.0-44.0); MEAN CORPUSCULAR HEMOGLOBIN 29.4 pg (27.0-33.0); MEAN CORPUSCULAR HGB CONC 32.6 g/dl (32.0-36.5); MONO # 0.3 10^3/uL (0.0-0.8); MONO % 5.8 % (2.0-8.0); NEUTROPHILS # 2.8 10^3/uL (1.5-8.5); NEUTROPHILS % 58.3 % (36.0-66.0); PLATELET COUNT, AUTOMATED 338 10^3/uL (150-450); RED BLOOD COUNT 4.32 10^6/uL (4.00-5.40); WHITE BLOOD COUNT 4.8 10^3/uL (4.0-10.0)
[2022-09-15 11:15] LABS: FERRITIN 13.3 NG/ML (7.3-270.7)
[2022-09-15 11:16] LABS: ALBUMIN 3.9 G/DL (3.2-5.2); ALKALINE PHOSPHATASE 72 U/L (46-116); ALT/SGPT 11 U/L (7.0-40); AST/SGOT 11 U/L (<34); BILIRUBIN,TOTAL 0.5 MG/DL (0.3-1.2); BLOOD UREA NITROGEN 12 MG/DL (9-23); CARBON DIOXIDE LEVEL 29 MMOL/L (20-31); CHLORIDE LEVEL 105 MMOL/L (98-107); CREATININE FOR GFR 0.67 MG/DL (0.55-1.30); FREE T4 1.01 NG/DL (0.89-1.76); GLOMERULAR FILTRATION RATE > 60.0 (>60); GLUCOSE, FASTING 87 MG/DL (60-100); IRON (FE) 139 UG/DL (50-170); POTASSIUM SERUM 4.7 MMOL/L (3.5-5.1); SODIUM LEVEL 139 MMOL/L (136-145); THYROID STIMULATING HORMONE 1.428 uIU/ML (0.55-4.78); TOTAL PROTEIN 6.6 G/DL (5.7-8.2); VITAMIN B12 LEVEL 576 PG/ML (211-911)
[2022-09-15 17:38] LABS: C REACTIVE PROTEIN QUANTITATIV < 0.40 MG/DL (<1.0)
[2022-09-15 17:40] LABS: RHEUMATOID FACTOR QUANT 3.7 IU/ML (<14)
[2022-09-15 20:51] LABS: ERYTHROCYTE SEDIMENTATION RATE 9 mm/hr (0-20)
[2022-09-17 23:07] LABS: ANA (HEP2) Negative (.); CYCLIC CITRULLINATED PEPTIDE 4 units (0-19)
== END ==
LOC: M PLALAB 08:11
PROVIDERS: ATTEND Physician Assistant Medical
DX: R53.82 Chronic fatigue, unspecified (principal)

== ENCOUNTER → 2022-09-26 | Outpatient (CLI) | payer BC | LOC: M RAD 15:53 | PROVIDERS: ATTEND Physician Assistant Medical | DX: R59.1 Generalized enlarged lymph nodes (principal) ==

== ENCOUNTER → 2022-10-03 | Outpatient (CLI) | payer BC ==
[2022-10-03 19:02] LABS: BASO % 0.5 % (0.0-1.0); EOS # 0.1 10^3/uL (0.0-0.5); EOS % 2.2 % (0.0-3.0); HEMATOCRIT 40.8 % (36.0-47.0); HEMOGLOBIN 13.1 g/dl (12.0-15.5); LYMPH % 31.1 % (24.0-44.0); MEAN CORPUSCULAR HEMOGLOBIN 29.6 pg (27.0-33.0); MEAN CORPUSCULAR HGB CONC 32.1 g/dl (32.0-36.5); MEAN CORPUSCULAR VOLUME 92.3 fl (80.0-96.0); MONO # 0.4 10^3/uL (0.0-0.8); MONO % 6.6 % (2.0-8.0); NEUTROPHILS # 3.8 10^3/uL (1.5-8.5); NEUTROPHILS % 59.4 % (36.0-66.0); PLATELET COUNT, AUTOMATED 315 10^3/uL (150-450); RED BLOOD COUNT 4.42 10^6/uL (4.00-5.40); WHITE BLOOD COUNT 6.4 10^3/uL (4.0-10.0)
== END ==
LOC: M WUC 11:20
PROVIDERS: ATTEND Physician Assistant Medical
DX: E61.1 Iron deficiency (principal); R59.0 Localized enlarged lymph nodes

== ENCOUNTER → 2022-10-21 | Outpatient (CLI) | payer BC ==
[2022-10-21 07:26] LABS: BASO % 0.5 % (0.0-1.0); EOS # 0.2 10^3/uL (0.0-0.5); EOS % 2.6 % (0.0-3.0); HEMATOCRIT 37.7 % (36.0-47.0); HEMOGLOBIN 12.2 g/dl (12.0-15.5); LYMPH # 1.6 10^3/uL (1.5-5.0); LYMPH % 27.2 % (24.0-44.0); MEAN CORPUSCULAR HEMOGLOBIN 29.4 pg (27.0-33.0); MEAN CORPUSCULAR HGB CONC 32.4 g/dl (32.0-36.5); MEAN CORPUSCULAR VOLUME 90.8 fl (80.0-96.0); MONO # 0.4 10^3/uL (0.0-0.8); MONO % 7.4 % (2.0-8.0); NEUTROPHILS # 3.5 10^3/uL (1.5-8.5); NEUTROPHILS % 61.8 % (36.0-66.0); PLATELET COUNT, AUTOMATED 310 10^3/uL (150-450); RED BLOOD COUNT 4.15 10^6/uL (4.00-5.40); WHITE BLOOD COUNT 5.7 10^3/uL (4.0-10.0)
[2022-10-21 07:56] LABS: FERRITIN 19.3 NG/ML (7.3-270.7)
== END ==
LOC: M LAB 06:14
PROVIDERS: ATTEND Physician Assistant Medical
DX: D50.9 Iron deficiency anemia, unspecified (principal)

== ENCOUNTER 2022-10-28 08:27 | Outpatient (CLI) | payer BC ==
[~2022-10-28] VITALS: Ht 174 cm; Wt 84.5 kg
[~2022-10-28 08:27] MED LIST changes: +ALBUTEROL SULFATE 2.5MG/0.5ML INH NEB SOLN INH PRN; +EPINEPHrine INJ 1 MG/ML 1ML AMP IM PRN; +methylPREDNISolone 125MG 2ML VIAL IV PRN
[2022-10-28 08:35] VITALS: BP 114/60; O2SAT 100
[2022-10-28] MEDS ORDERED: NS 100 ML IV ONE (08:55)
[2022-10-28] MEDS ORDERED: IRON SUCROSE 200 MG in NS 190 ML IV ONE (09:05)
[2022-10-28] MEDS ORDERED: IRON SUCROSE 225 MG in NS 213.75 ML IV ONE (09:05)
[2022-10-28] MEDS ORDERED: IRON SUCROSE 25 MG in NS 23.75 ML IV ONE (09:05)
[2022-10-28] MEDS ORDERED: NS 1,000 ML IV SCH (09:10)
[2022-10-28 10:31] VITALS: BP 112/63; O2SAT 99
[2022-10-28 11:55] VITALS: BP 126/70; O2SAT 100
[2022-10-28] MEDS: diphenhydrAMINE 50MG/ML VIAL IV PRN ×2 (11:55→12:28)
[2022-10-28 12:28] VITALS: BP 120/60; O2SAT 100
[2022-10-28 12:55] VITALS: BP 118/66; O2SAT 99
[2022-10-28] MEDS ORDERED: PRED20TA PO (14:51)
[2022-10-28] MEDS ORDERED: BENA25CA4 PO (14:52)
== END 2022-10-28 13:00 | disposition home or self-care (01) ==
LOC: M INFU 08:27
PROVIDERS: ATTEND Physician Assistant Medical
DX: D50.9 Iron deficiency anemia, unspecified (principal); Z79.899 Other long term (current) drug therapy
CPT/HCPCS: 96365; 96366; 96375; J1200; J1756; J2930

== ENCOUNTER 2022-10-28 13:05 | Emergency (ER) | payer BC ==
[~2022-10-28] VITALS: Ht 175.3 cm; Wt 81.8 kg
[~2022-10-28 13:05] MED LIST changes: -ALBUTEROL SULFATE 2.5MG/0.5ML INH NEB SOLN INH PRN; -EPINEPHrine INJ 1 MG/ML 1ML AMP IM PRN; -methylPREDNISolone 125MG 2ML VIAL IV PRN
[2022-10-28] MEDS ORDERED: PRED20TA PO (14:51)
[2022-10-28 14:52] VITALS: BP 142/74; TEMP 98.2; O2SAT 97
[2022-10-28] MEDS ORDERED: BENA25CA4 PO (14:52)
== END 2022-10-28 15:11 | disposition home or self-care (01) ==
LOC: M ED 13:05
DX: R20.2 Paresthesia of skin (principal); T45.4X5A Adverse effect of iron and its compounds, initial encounter; D50.9 Iron deficiency anemia, unspecified; G43.909 Migraine, unspecified, not intractable, without status migrainosus

== ENCOUNTER → 2022-11-01 | Outpatient (REF) | payer BC ==
[~2022-11-01] MED LIST changes: +BENA25CA4 PO; +PRED20TA PO
== END ==
LOC: M SFHCPLAZ 08:41
PROVIDERS: ATTEND Physician Assistant Medical
DX: E61.1 Iron deficiency (principal)

== ENCOUNTER → 2022-11-03 | Outpatient (CLI) | payer BC ==
[2022-11-03 07:17] LABS: BASO % 0.6 % (0.0-1.0); EOS # 0.1 10^3/uL (0.0-0.5); EOS % 2.4 % (0.0-3.0); HEMATOCRIT 37.6 % (36.0-47.0); HEMOGLOBIN 12.6 g/dl (12.0-15.5); LYMPH # 1.7 10^3/uL (1.5-5.0); LYMPH % 30.9 % (24.0-44.0); MEAN CORPUSCULAR HEMOGLOBIN 29.7 pg (27.0-33.0); MEAN CORPUSCULAR HGB CONC 33.5 g/dl (32.0-36.5); MEAN CORPUSCULAR VOLUME 88.7 fl (80.0-96.0); MONO # 0.3 10^3/uL (0.0-0.8); MONO % 6.2 % (2.0-8.0); NEUTROPHILS # 3.2 10^3/uL (1.5-8.5); NEUTROPHILS % 59.5 % (36.0-66.0); PLATELET COUNT, AUTOMATED 283 10^3/uL (150-450); RED BLOOD COUNT 4.24 10^6/uL (4.00-5.40); WHITE BLOOD COUNT 5.3 10^3/uL (4.0-10.0)
[2022-11-03 07:44] LABS: FERRITIN 75.5 NG/ML (7.3-270.7)
== END ==
LOC: M LAB 06:30
PROVIDERS: ATTEND Physician Assistant Medical
DX: E61.1 Iron deficiency (principal)

== ENCOUNTER → 2022-11-25 | Outpatient (CLI) | payer BC ==
[2022-11-25 07:20] LABS: BASO % 0.6 % (0.0-1.0); EOS # 0.1 10^3/uL (0.0-0.5); EOS % 2.5 % (0.0-3.0); HEMATOCRIT 37.4 % (36.0-47.0); HEMOGLOBIN 12.5 g/dl (12.0-15.5); LYMPH # 1.7 10^3/uL (1.5-5.0); LYMPH % 35.1 % (24.0-44.0); MEAN CORPUSCULAR HEMOGLOBIN 30.1 pg (27.0-33.0); MEAN CORPUSCULAR HGB CONC 33.4 g/dl (32.0-36.5); MEAN CORPUSCULAR VOLUME 90.1 fl (80.0-96.0); MONO # 0.3 10^3/uL (0.0-0.8); MONO % 6.8 % (2.0-8.0); NEUTROPHILS # 2.7 10^3/uL (1.5-8.5); NEUTROPHILS % 54.6 % (36.0-66.0); PLATELET COUNT, AUTOMATED 247 10^3/uL (150-450); RED BLOOD COUNT 4.15 10^6/uL (4.00-5.40); WHITE BLOOD COUNT 4.9 10^3/uL (4.0-10.0)
[2022-11-25 08:08] LABS: ERYTHROCYTE SEDIMENTATION RATE 9 mm/hr (0-20)
== END ==
LOC: M LAB 06:29
PROVIDERS: ATTEND Physician Assistant Medical
DX: R59.1 Generalized enlarged lymph nodes (principal)

== ENCOUNTER → 2023-01-28 | Outpatient (CLI) | payer BC ==
[~2023-01-28] MED LIST changes: +HOLTER MONITOR XX
== END ==
LOC: M WHC 15:44
PROVIDERS: ATTEND Otolaryngology
DX: R22.1 Localized swelling, mass and lump, neck (principal)

== ENCOUNTER → 2023-04-13 | Outpatient (CLI) | payer BC | LOC: M LAB 11:21 | PROVIDERS: ATTEND Specialist | DX: N92.6 Irregular menstruation, unspecified (principal) ==

== ENCOUNTER → 2023-05-04 | Outpatient (CLI) | payer BC ==
[2023-05-04 18:24] LABS: HEMATOCRIT 39.1 % (36.0-47.0); HEMOGLOBIN 13.2 g/dl (12.0-15.5); MEAN CORPUSCULAR HEMOGLOBIN 30.5 pg (27.0-33.0); MEAN CORPUSCULAR HGB CONC 33.8 g/dl (32.0-36.5); MEAN CORPUSCULAR VOLUME 90.3 fl (80.0-96.0); PLATELET COUNT, AUTOMATED 331 10^3/uL (150-450); RED BLOOD COUNT 4.33 10^6/uL (4.00-5.40); WHITE BLOOD COUNT 6.9 10^3/uL (4.0-10.0)
[2023-05-04 19:24] LABS: HIV 1&2 SCREEN NEGATIVE (NEGATIVE)
[2023-05-04 19:32] LABS: HEPATITIS C VIRUS ABY INDEX < 0.02 INDEX (<0.8)
== END ==
LOC: M PLALAB 15:34
PROVIDERS: ATTEND Specialist
DX: Z34.81 Encounter for supervision of other normal pregnancy, first trimester (principal)

== ENCOUNTER → 2023-05-18 | Outpatient (CLI) | payer BC | LOC: M PLALAB 09:24 | PROVIDERS: ATTEND Obstetrics & Gynecology | DX: Z34.81 Encounter for supervision of other normal pregnancy, first trimester (principal) ==

== ENCOUNTER → 2023-05-18 | Outpatient (REF) | payer BC ==
[2023-05-18 12:10] LABS: GC DNA AMPLIFICATION NEGATIVE (NEGATIVE)
== END ==
LOC: M PLALAB 08:26
PROVIDERS: ATTEND Specialist
DX: Z34.81 Encounter for supervision of other normal pregnancy, first trimester (principal)

== ENCOUNTER 2023-06-17 06:04 | Day surgery (SDC) | payer BC ==
[~2023-06-17] VITALS: Ht 175.3 cm; Wt 83.6 kg
[~2023-06-17 06:04] MED LIST changes: +DOXYCYCLINE HYCLATE 100 MG in D5W MINI-BAG PLUS 100 ML IV ONE
[2023-06-17 06:38] LABS: HEMATOCRIT 39.2 % (36.0-47.0); HEMOGLOBIN 13.3 g/dl (12.0-15.5); MEAN CORPUSCULAR HEMOGLOBIN 30.2 pg (27.0-33.0); MEAN CORPUSCULAR HGB CONC 33.9 g/dl (32.0-36.5); MEAN CORPUSCULAR VOLUME 89.1 fl (80.0-96.0); PLATELET COUNT, AUTOMATED 272 10^3/uL (150-450); WHITE BLOOD COUNT 5.2 10^3/uL (4.0-10.0)
[2023-06-17] MEDS ORDERED: LR 1,000 ML IV SCH ×2 (06:40→08:45)
[2023-06-17 06:49] LABS: INR 1.09; PARTIAL THROMBOPLASTIN TIME 28.8 SECONDS (24.8-34.2); PROTHROMBIN TIME 13.8 SECONDS (12.5-14.5)
[2023-06-17] MEDS ORDERED: LIDOCAINE W/EPINEPHRINE 1% 20ML VIAL As Ordered ONE (07:16)
[2023-06-17] MEDS ORDERED: METHYLERGONOVINE MALEATE 0.2MG/ML 1ML VIAL As Ordered ONE (07:17)
[2023-06-17] MEDS: DOXYCYCLINE HYCLATE 100 MG in D5W MINI-BAG PLUS 100 ML IV ONE (07:42)
[2023-06-17] MEDS ORDERED: MIDAZOLAM INJ 2MG/2ML VIAL As Ordered ONE (07:49)
[2023-06-17] MEDS ORDERED: propofoL 200 MG/20 ML VIAL As Ordered ONE (07:49)
[2023-06-17] MEDS ORDERED: fentaNYL 100 MCG/2 ML INJECTION As Ordered ONE (07:49)
[2023-06-17] MEDS ORDERED: LIDOCAINE 2% 100MG/5ML SDV (FOR ANES.) As Ordered ONE (07:49)
[2023-06-17] MEDS ORDERED: dexmedeTOMIDine (4MCG/ML)200MCG/50ML BTL (PRECEDEX) As Ordered ONE (07:49)
[2023-06-17] MEDS ORDERED: ONDANSETRON 4MG 2ML VIAL As Ordered ONE (07:49)
[2023-06-17] MEDS: SCOPOLAMINE 1MG TRANSDERMAL PATCH As Ordered ONE (07:52)
[2023-06-17] MEDS ORDERED: ACETAMINOPHEN 1000MG 100ML IV BAG As Ordered ONE (08:02)
[2023-06-17] MEDS ORDERED: oxyCODONE 5MG TAB PO PRN ×2 (08:45→08:55)
[2023-06-17] MEDS ORDERED: HYDROMORPHONE HCL 0.5 MG/ 0.5 ML SYRINGE IV PRN (08:45)
[2023-06-17] MEDS ORDERED: fentaNYL 100 MCG/2 ML INJECTION IV PRN (08:45)
[2023-06-17] MEDS ORDERED: KETOROLAC 60MG 2ML VIAL As Ordered ONE (08:47)
[2023-06-17] MEDS ORDERED: ACETAMINOPHEN 500 MG TAB PO PRN (08:55)
[2023-06-17] MEDS ORDERED: ONDANSETRON 4MG 2ML VIAL IV PRN (08:55)
[2023-06-17] MEDS: ONDANSETRON 4MG 2ML VIAL IV PRN (09:25)
[2023-06-17 09:50] VITALS: BP 115/56; TEMP 98.1; O2SAT 96
== END 2023-06-17 09:53 | disposition home or self-care (01) ==
LOC: M SDC 06:04
PROVIDERS: ATTEND Obstetrics & Gynecology
DX: O02.1 Missed abortion (principal); N99.71 Accidental puncture and laceration of a genitourinary system organ or structure during a genitourinary system procedure; Z88.8 Allergy status to other drugs, medicaments and biological substances
CPT/HCPCS: 36415; 59821; 76815; 81025; 85027; 85384; 85610; 85730; 86850; 86900; 86901; 88305; J0131; J0665; J1100; J1885; J2250; J2405; J3010

== ENCOUNTER → 2023-08-03 | Outpatient (CLI) | payer BC ==
[~2023-08-03] MED LIST changes: -DOXYCYCLINE HYCLATE 100 MG in D5W MINI-BAG PLUS 100 ML IV ONE
[2023-08-03 10:27] LABS: BASO % 0.5 % (0.0-1.0); EOS # 0.1 10^3/uL (0.0-0.5); EOS % 1.4 % (0.0-3.0); HEMATOCRIT 39.3 % (36.0-47.0); HEMOGLOBIN 13.1 g/dl (12.0-15.5); LYMPH # 1.8 10^3/uL (1.5-5.0); LYMPH % 31.7 % (24.0-44.0); MEAN CORPUSCULAR HEMOGLOBIN 29.8 pg (27.0-33.0); MEAN CORPUSCULAR HGB CONC 33.3 g/dl (32.0-36.5); MEAN CORPUSCULAR VOLUME 89.5 fl (80.0-96.0); MONO # 0.4 10^3/uL (0.0-0.8); MONO % 6.3 % (2.0-8.0); NEUTROPHILS # 3.4 10^3/uL (1.5-8.5); NEUTROPHILS % 59.9 % (36.0-66.0); PLATELET COUNT, AUTOMATED 332 10^3/uL (150-450); RED BLOOD COUNT 4.39 10^6/uL (4.00-5.40); WHITE BLOOD COUNT 5.6 10^3/uL (4.0-10.0)
[2023-08-03 11:00] LABS: ALKALINE PHOSPHATASE 77 U/L (46-116); ALT/SGPT 17 U/L (7.0-40); AST/SGOT 14 U/L (<34); BILIRUBIN,TOTAL 0.6 MG/DL (0.3-1.2); BLOOD UREA NITROGEN 12 MG/DL (9-23); CALCIUM LEVEL 9.5 MG/DL (8.5-10.1); CARBON DIOXIDE LEVEL 28 MMOL/L (20-31); CHLORIDE LEVEL 106 MMOL/L (98-107); CHOLESTEROL LEVEL 166 MG/DL (<200); CHOLESTEROL RISK RATIO 3.19 (<5); CREATININE FOR GFR 0.67 MG/DL (0.55-1.30); FREE T4 0.99 NG/DL (0.89-1.76); GLOMERULAR FILTRATION RATE > 60.0 (>60); GLUCOSE, FASTING 94 MG/DL (60-100); HDL CHOLESTEROL 51.9 MG/DL (>40); LDL CHOLESTEROL 88.9 MG/DL (<100); NON-HDL-C 114.1 MG/DL; POTASSIUM SERUM 4.5 MMOL/L (3.5-5.1); SODIUM LEVEL 138 MMOL/L (136-145); TOTAL PROTEIN 6.9 G/DL (5.7-8.2); TRIGLYCERIDES LEVEL 126 MG/DL (<150)
[2023-08-03 11:02] LABS: TOTAL 25(OH) VITAMIN D 38.7 NG/ML (20.0-100.0)
[2023-08-03 11:03] LABS: VITAMIN B12 LEVEL 679 PG/ML (211-911)
[2023-08-03 11:34] LABS: HEMOGLOBIN A1c 4.8 % (4.0-6.0)
== END ==
LOC: M PLALAB 08:37
PROVIDERS: ATTEND Physician Assistant Medical
DX: E66.3 Overweight (principal)

== ENCOUNTER 2023-12-03 16:17 | Emergency (ER) | payer BC ==
[~2023-12-03] VITALS: Ht 175.3 cm; Wt 79.6 kg
[2023-12-03] MEDS ORDERED: SEMA0.257 SQ (16:35)
[2023-12-03] MEDS: KETOROLAC 30 MG/ML 1ML VIAL IV ONE (18:01)
[2023-12-03] MEDS: ONDANSETRON 4MG 2ML VIAL IV ONE (18:01)
[2023-12-03] MEDS: NS 1,000 ML IV ONE (18:02)
[2023-12-03 18:10] LABS: BASO % 0.1 % (0.0-1.0); EOS # 0.5 10^3/uL (0.0-0.5); EOS % 4.4 % (0.0-3.0); HEMATOCRIT 38.8 % (36.0-47.0); LYMPH # 1.3 10^3/uL (1.5-5.0); LYMPH % 11.2 % (24.0-44.0); MEAN CORPUSCULAR HEMOGLOBIN 29.3 pg (27.0-33.0); MEAN CORPUSCULAR HGB CONC 33.5 g/dl (32.0-36.5); MEAN CORPUSCULAR VOLUME 87.6 fl (80.0-96.0); MONO # 0.5 10^3/uL (0.0-0.8); MONO % 4.6 % (2.0-8.0); NEUTROPHILS # 9.1 10^3/uL (1.5-8.5); NEUTROPHILS % 79.3 % (36.0-66.0); PLATELET COUNT, AUTOMATED 292 10^3/uL (150-450); RED BLOOD COUNT 4.43 10^6/uL (4.00-5.40); WHITE BLOOD COUNT 11.4 10^3/uL (4.0-10.0)
[2023-12-03 18:36] VITALS: BP 113/59; TEMP 97.4; O2SAT 100
[2023-12-03 18:39] LABS: LIPASE 30 U/L (12-53)
[2023-12-03 18:41] LABS: ALBUMIN 3.9 G/DL (3.2-5.2); ALKALINE PHOSPHATASE 73 U/L (46-116); ALT/SGPT 14 U/L (7.0-40); AST/SGOT 11 U/L (<34); BILIRUBIN,DIRECT 0.2 MG/DL (<0.4); BILIRUBIN,TOTAL 0.4 MG/DL (0.3-1.2); BLOOD UREA NITROGEN 9 MG/DL (9-23); CARBON DIOXIDE LEVEL 29 MMOL/L (20-31); CHLORIDE LEVEL 105 MMOL/L (98-107); CK-MB VALUE MASS < 1.0 NG/ML (<3.6); CREATININE FOR GFR 0.66 MG/DL (0.55-1.30); GLOMERULAR FILTRATION RATE > 60.0 (>60); GLUCOSE, FASTING 90 MG/DL (60-100); POTASSIUM SERUM 4.2 MMOL/L (3.5-5.1); SODIUM LEVEL 137 MMOL/L (136-145); TOTAL PROTEIN 6.9 G/DL (5.7-8.2)
[2023-12-03 19:15] LABS: CPK CREATINE PHOSPHOKINASE 51 U/L (34-145); MB/CK RELATIVE INDEX 1.96 (< OR =4)
[2023-12-03] MEDS ORDERED: ISOVUE-370 76% 100ML VIAL As Ordered ONE (19:25)
[2023-12-03 21:31] LABS: HCG, SERUM QUALITATIVE NEGATIVE (NEGATIVE)
[2023-12-03] MEDS ORDERED: SIME180C25 PO (21:56)
[2023-12-03] MEDS ORDERED: MIRA3350 PO (21:56)
== END 2023-12-03 22:06 | disposition home or self-care (01) ==
LOC: M ED 16:17
DX: R10.9 Unspecified abdominal pain (principal); I44.0 Atrioventricular block, first degree; D64.9 Anemia, unspecified; Z91.09 Other allergy status, other than to drugs and biological substances; Z79.4 Long term (current) use of insulin
CPT/HCPCS: 74177; 76705; 80048; 80076; 81001; 82550; 82553; 83690; 84484; 84703; 85025; 93005; 96361; 96374; 99284; J1885; J2405; Q9967

== ENCOUNTER → 2024-03-15 | Outpatient (CLI) | payer BC ==
[~2024-03-15] MED LIST changes: +MIRA3350 PO; +SEMA0.257 SQ; +SIME1CAP4 PO
[2024-03-15 08:11] LABS: HCG, SERUM QUANTITATIVE 827.8 MIU/ML (<4.2)
[2024-03-15 08:15] LABS: PROGESTERONE 18.54 NG/ML
== END ==
LOC: M LAB 06:37
PROVIDERS: ATTEND Obstetrics & Gynecology Reproductive Endocrinology
DX: Z32.00 Encounter for pregnancy test, result unknown (principal)

== ENCOUNTER → 2024-03-17 | Outpatient (CLI) | payer BC ==
[2024-03-17 07:52] LABS: THYROID STIMULATING HORMONE 2.236 uIU/ML (0.55-4.78)
[2024-03-17 07:53] LABS: ESTRADIOL 203.9 PG/ML; PROGESTERONE 19.24 NG/ML
[2024-03-17 08:03] LABS: HCG, SERUM QUANTITATIVE 2401.5 MIU/ML (<4.2)
== END ==
LOC: M LAB 06:36
PROVIDERS: ATTEND Obstetrics & Gynecology Reproductive Endocrinology
DX: O09.00 Supervision of pregnancy with history of infertility, unspecified trimester (principal)

== ENCOUNTER → 2024-05-03 | Outpatient (CLI) | payer BC ==
[~2024-05-03] MED LIST changes: +PREN200C PO
[2024-05-03 10:44] LABS: HEMATOCRIT 37.7 % (36.0-47.0); HEMOGLOBIN 12.4 g/dl (12.0-15.5); MEAN CORPUSCULAR HEMOGLOBIN 28.8 pg (27.0-33.0); MEAN CORPUSCULAR HGB CONC 32.9 g/dl (32.0-36.5); MEAN CORPUSCULAR VOLUME 87.7 fl (80.0-96.0); PLATELET COUNT, AUTOMATED 300 10^3/uL (150-450); WHITE BLOOD COUNT 5.6 10^3/uL (4.0-10.0)
[2024-05-03 11:44] LABS: HEPATITIS C VIRUS ABY INDEX 0.14 INDEX (<0.8)
[2024-05-03 12:13] LABS: GC DNA AMPLIFICATION NEGATIVE (NEGATIVE)
[2024-05-03 12:27] LABS: HIV 1&2 SCREEN NEGATIVE (NEGATIVE)
== END ==
LOC: M PLALAB 07:49
PROVIDERS: ATTEND Advanced Practice Midwife
DX: Z34.81 Encounter for supervision of other normal pregnancy, first trimester (principal)

== ENCOUNTER 2024-05-04 10:39 | Day surgery (SDC) | payer BC ==
[~2024-05-04] VITALS: Ht 175.3 cm; Wt 78.7 kg
[2024-05-04] MEDS ORDERED: MIDAZOLAM INJ 2MG/2ML VIAL As Ordered ONE (10:49)
[2024-05-04] MEDS ORDERED: fentaNYL 100 MCG/2 ML INJECTION As Ordered ONE (10:49)
[2024-05-04] MEDS ORDERED: dexmedeTOMIDine (4MCG/ML)200MCG/50ML BTL (PRECEDEX) As Ordered ONE (10:52)
[2024-05-04] MEDS ORDERED: propofoL 200 MG/20 ML VIAL As Ordered ONE (10:52)
[2024-05-04] MEDS ORDERED: LIDOCAINE 2% 100MG/5ML SDV (FOR ANES.) As Ordered ONE (10:52)
[2024-05-04] MEDS ORDERED: ONDANSETRON 4MG 2ML VIAL As Ordered ONE (10:52)
[2024-05-04] MEDS ORDERED: ACETAMINOPHEN 1000MG/100ML IV BAG As Ordered ONE (10:53)
[2024-05-04] MEDS ORDERED: LIDOCAINE 1% SDV 5ML VIAL SC PRN (11:05)
[2024-05-04] MEDS ORDERED: LR 1,000 ML IV SCH ×2 (11:05→13:20)
[2024-05-04] MEDS: DOXYCYCLINE HYCLATE 100MG TABLET PO ONE (11:48)
[2024-05-04] MEDS: LIDOCAINE 1% SDV 30ML VIAL As Ordered ONE (11:48)
[2024-05-04 11:49] LABS: HEMATOCRIT 38.9 % (36.0-47.0); HEMOGLOBIN 13.1 g/dl (12.0-15.5); MEAN CORPUSCULAR HEMOGLOBIN 29.3 pg (27.0-33.0); MEAN CORPUSCULAR HGB CONC 33.7 g/dl (32.0-36.5); PLATELET COUNT, AUTOMATED 286 10^3/uL (150-450); RED BLOOD COUNT 4.47 10^6/uL (4.00-5.40); WHITE BLOOD COUNT 6.2 10^3/uL (4.0-10.0)
[2024-05-04] MEDS: SCOPOLAMINE 1MG TRANSDERMAL PATCH TOP ONE (12:05)
[2024-05-04] MEDS ORDERED: KETOROLAC 60MG 2ML VIAL As Ordered ONE (12:29)
[2024-05-04] MEDS ORDERED: HYDROMORPHONE HCL 0.5 MG/ 0.5 ML SYRINGE IV PRN (13:20)
[2024-05-04] MEDS ORDERED: fentaNYL 100 MCG/2 ML INJECTION IV PRN (13:20)
[2024-05-04] MEDS: ONDANSETRON 4MG 2ML VIAL IV PRN (13:46)
[2024-05-04] MEDS: oxyCODONE 5MG TAB PO PRN (13:47)
[2024-05-04] MEDS ORDERED: METOCLOPRAMIDE INJ 10MG/2ML VIAL IV PRN (13:55)
[2024-05-04 14:40] VITALS: BP 109/55; TEMP 98.2; O2SAT 98
[2024-05-04] MEDS ORDERED: KETOROLAC 30 MG/ML 1ML VIAL IV SCH (19:00)
== END 2024-05-04 14:40 | disposition home or self-care (01) ==
LOC: M SDC 10:39
PROVIDERS: ATTEND Obstetrics & Gynecology
DX: O02.1 Missed abortion (principal)
CPT/HCPCS: 36415; 59820; 85027; 86850; 86900; 86901; 88305; J0131; J1100; J1885; J2250; J2405; J3010

== ENCOUNTER → 2024-05-31 | Outpatient (CLI) | payer BC | LOC: M WUC 11:18 | PROVIDERS: ATTEND Obstetrics & Gynecology | DX: Z32.01 Encounter for pregnancy test, result positive (principal) ==

== ENCOUNTER → 2024-06-02 | Outpatient (CLI) | payer BC | LOC: M LAB 06:57 | PROVIDERS: ATTEND Obstetrics & Gynecology | DX: Z32.01 Encounter for pregnancy test, result positive (principal) ==

== ENCOUNTER → 2024-06-02 | Outpatient (CLI) | payer BC ==
[2024-06-02 08:06] LABS: BASO % 0.6 % (0.0-1.0); EOS # 0.1 10^3/uL (0.0-0.5); EOS % 2.4 % (0.0-3.0); HEMATOCRIT 38.1 % (36.0-47.0); HEMOGLOBIN 12.5 g/dl (12.0-15.5); LYMPH # 1.6 10^3/uL (1.5-5.0); LYMPH % 31.4 % (24.0-44.0); MEAN CORPUSCULAR HEMOGLOBIN 28.5 pg (27.0-33.0); MEAN CORPUSCULAR HGB CONC 32.8 g/dl (32.0-36.5); MONO # 0.4 10^3/uL (0.0-0.8); MONO % 7.5 % (2.0-8.0); NEUTROPHILS # 2.9 10^3/uL (1.5-8.5); NEUTROPHILS % 57.9 % (36.0-66.0); PLATELET COUNT, AUTOMATED 293 10^3/uL (150-450); RED BLOOD COUNT 4.38 10^6/uL (4.00-5.40); WHITE BLOOD COUNT 5.1 10^3/uL (4.0-10.0)
[2024-06-02 08:35] LABS: ALBUMIN 3.8 G/DL (3.2-5.2); ALKALINE PHOSPHATASE 72 U/L (35-104); ALT/SGPT 12 U/L (7.0-40); AST/SGOT 13 U/L (<34); BILIRUBIN,TOTAL 0.4 MG/DL (0.3-1.2); BLOOD UREA NITROGEN 15 MG/DL (9-23); CALCIUM LEVEL 9.7 MG/DL (8.5-10.1); CARBON DIOXIDE LEVEL 27 MMOL/L (20-31); CHLORIDE LEVEL 107 MMOL/L (98-107); CHOLESTEROL LEVEL 151 MG/DL (<200); CHOLESTEROL RISK RATIO 2.93 (<5); CREATININE FOR GFR 0.64 MG/DL (0.55-1.30); GLOMERULAR FILTRATION RATE > 60.0 (>60); GLUCOSE, FASTING 90 MG/DL (60-100); HDL CHOLESTEROL 51.5 MG/DL (>40); LDL CHOLESTEROL 88.1 MG/DL (<100); NON-HDL-C 99.5 MG/DL; POTASSIUM SERUM 5.1 MMOL/L (3.5-5.1); SODIUM LEVEL 141 MMOL/L (136-145); TOTAL PROTEIN 7.2 G/DL (5.7-8.2); TRIGLYCERIDES LEVEL 57 MG/DL (<150)
[2024-06-06 21:02] LABS: ANA SCREEN, IFA NEGATIVE (NEGATIVE)
== END ==
LOC: M LAB 06:59
PROVIDERS: ATTEND Nurse Practitioner Adult Health
DX: Z00.00 Encounter for general adult medical examination without abnormal findings (principal)

== ENCOUNTER → 2024-11-04 | Outpatient (CLI) | payer BC | LOC: M PLARAD 10-06 07:42 | PROVIDERS: ATTEND Physician Assistant Medical | DX: G93.0 Cerebral cysts (principal) ==

== ENCOUNTER → 2024-12-02 | Outpatient (CLI) | payer BC | LOC: M WHC 06:59 | PROVIDERS: ATTEND Specialist | DX: N92.0 Excessive and frequent menstruation with regular cycle (principal) ==